=== PATIENT | female | born 1980 | race Caucasian/White ===

== ENCOUNTER 2019-11-25 20:29 | Emergency (ER) | payer OTHER ==
[~2019-11-25] VITALS: Ht 167.6 cm; Wt 117.9 kg
[2019-11-25] MEDS ORDERED: AMOCLA875 PO (21:53)
[2019-11-25] MEDS ORDERED: KETO10 PO (21:53)
== END 2019-11-25 22:05 | disposition home or self-care (01) ==
LOC: ER 20:29
DX: S61.452A Open bite of left hand, initial encounter (principal); Z23 Encounter for immunization; W54.0XXA Bitten by dog, initial encounter
CPT/HCPCS: 73120; 90471; 90714; 99283-25